=== PATIENT | female | born 1940 | race Caucasian/White ===

== ENCOUNTER 2018-02-02 14:07 | Observation (INO) | payer MEDICARE, BC ==
[2018-02-02] MEDS ORDERED: SODIUM CHLORIDE 0.9% 1,000 ML IV STA ×2 (14:22)
[2018-02-02] MEDS ORDERED: IBUPROFEN 600 MG TAB PO STA (14:22)
[2018-02-02] MEDS ORDERED: ACETAMINOPHEN TAB 500 MG TAB PO STA (14:22)
--- NOTE | 2018-02-02 14:23 | ED ---
General Adult HPI - General Chief complaint: Altered Mental Status Stated complaint: Altered Mental Status Time Seen by Provider: 02/02/18 14:13 Source: patient, family, RN notes reviewed, old records reviewed Mode of arrival: wheelchair Limitations: altered mental status - History of Present Illness Initial comments: This is a 77-year-old female the ER for evaluation. Patient presents today for evaluation regards to weakness altered mental status shortness of breath left- sided rib pain. Patient states he rib injury earlier in the week consistent has not been feeling well. Shortness breath cough today. No recent travel history no sick contacts. No specific trauma that she can remember, patient does admit to shortness of breath currently and positive fever - Related Data Home Medications Medication Instructions Recorded Confirmed Aspirin EC [Ecotrin Low Dose] 81 mg PO DAILY 02/02/18 02/02/18 Eye Vitamin(Unknown) 1 tab PO DAILY 02/02/18 02/02/18 Fexofenadine HCl [Janet Allergy] 180 mg PO DAILY 02/02/18 02/02/18 LORazepam [Ativan] 2 mg PO DAILY PRN 02/02/18 02/02/18 Lisinopril [Zestril] 10 mg PO DAILY 02/02/18 02/02/18 Lovastatin [Mevacor] 80 mg PO HS 02/02/18 02/02/18 Ubidecarenone [Co Q-10] 300 mg PO DAILY 02/02/18 02/02/18 Zolpidem [Ambien] 10 mg PO HS PRN 02/02/18 02/02/18 Allergies Allergy/AdvReac Type Severity Reaction Status Date / Time No Known Allergies Allergy Verified 02/02/18 14:35 Review of Systems ROS Statement: Those systems with pertinent positive or pertinent negative responses have been documented in the HPI. ROS Other: All systems not noted in ROS Statement are negative. Past Medical History Past Medical History: Hyperlipidemia, Hypertension Additional Past Medical History / Comment(s): uti Past Surgical History: Appendectomy Past Psychological History: No Psychological Hx Reported Smoking Status: Former smoker Past Alcohol Use History: Rare Past Drug Use History: None Reported - Past Family History Mother Family Medical History: No Reported History Additional Family Medical History / Comment(s): from old age in her 90's Father Family Medical History: Myocardial Infarction ([place]) General Exam Limitations: altered mental status General appearance: alert, in no apparent distress Head exam: Present: atraumatic, normocephalic, normal inspection Eye exam: Present: normal appearance, PERRL, EOMI. Absent: scleral icterus, conjunctival injection, periorbital swelling ENT exam: Present: normal exam, mucous membranes moist Neck exam: Present: normal inspection. Absent: tenderness, meningismus, lymphadenopathy Respiratory exam: Present: normal lung sounds bilaterally, accessory muscle use , decreased breath sounds, prolonged expiratory. Absent: respiratory distress, wheezes, rales, rhonchi, stridor Cardiovascular Exam: Present: normal rhythm, tachycardia, normal heart sounds. Absent: systolic murmur, diastolic murmur, rubs, gallop, clicks GI/Abdominal exam: Present: soft, normal bowel sounds. Absent: distended, tenderness, guarding, rebound, rigid Extremities exam: Present: normal inspection, full ROM, normal capillary refill. Absent: tenderness, pedal edema, joint swelling, calf tenderness Back exam: Present: normal inspection Neurological exam: Present: alert, oriented X3, CN II-XII intact Psychiatric exam: Present: normal affect, normal mood Skin exam: Present: warm, dry, intact, normal color. Absent: rash Course Vital Signs 02/02/18 02/02/18 02/02/18 14:10 15:47 16:20 Temperature 100.3 F H 101.2 F H 99.1 F Pulse Rate 113 H 99 94 Pulse Rate [ Pulse Oximetery ] Respiratory 18 18 18 Rate Blood Pressure 131/71 130/66 106/59 Blood Pressure [Right Arm] O2 Sat by Pulse 93 L 94 L 96 Oximetry 02/02/18 17:41 Temperature 99.2 F Pulse Rate Pulse Rate [ 92 Pulse Oximetery ] Respiratory 18 Rate Blood Pressure Blood Pressure 123/73 [Right Arm] O2 Sat by Pulse 95 Oximetry EKG Findings - EKG Comments: EKG Findings:: EKG shows sinus tachycardia rate 106, LA 160, QRS 86, [id number] Medical Decision Making - Medical Decision Making 77 female the ER positive fever, positive shortness of breath with cough. Patient has positive fever, will admit for pneumonia IV antibiotics and fever control - Lab Data Result diagrams: 02/03/18 08:15 02/04/18 07:40 Lab Results 02/02/18 02/02/18 02/02/18 Range/Units 14:25 14:25 14:25 WBC 8.1 (3.8-10.6) k/uL RBC 4.26 (3.80-5.40) m/uL Hgb 12.3 (11.4-16.0) gm/dL Hct 36.3 (34.0-46.0) % MCV 85.1 (80.0-100.0) fL MCH 28.9 (25.0-35.0) pg MCHC 34.0 (31.0-37.0) g/dL RDW 13.7 (11.5-15.5) % Plt Count 161 (150-450) k/uL Neutrophils % 85 % Lymphocytes % 5 % Monocytes % 6 % Eosinophils % 0 % Basophils % 0 % Neutrophils # 6.9 (1.3-7.7) k/uL Lymphocytes # 0.4 L (1.0-4.8) k/uL Monocytes # 0.5 (0-1.0) k/uL Eosinophils # 0.0 (0-0.7) k/uL Basophils # 0.0 (0-0.2) k/uL PT (9.0-12.0) sec INR (<1.2) APTT (22.0-30.0) sec Sodium 135 L (137-145) mmol/L Potassium 4.7 (3.5-5.1) mmol/L Chloride 99 (98-107) mmol/L Carbon Dioxide 22 (22-30) mmol/L Anion Gap 14 mmol/L BUN 32 H (7-17) mg/dL Creatinine 1.27 H (0.52-1.04) mg/dL Est GFR (CKD-EPI)AfAm 48 (>60 ml/min/1.73 sqM) Est GFR (CKD-EPI)NonAf 41 (>60 ml/min/1.73 sqM) Glucose 116 H (74-99) mg/dL Plasma Lactic Acid Narinder (0.7-2.0) mmol/L Calcium 9.2 (8.4-10.2) mg/dL Phosphorus 3.2 (2.5-4.5) mg/dL Magnesium 2.3 (1.6-2.3) mg/dL Total Bilirubin 0.6 (0.2-1.3) mg/dL AST 43 H (14-36) U/L ALT 38 (9-52) U/L Alkaline Phosphatase 225 H (38-126) U/L Total Creatine Kinase 26 L (30-135) U/L CK-MB (CK-2) 0.4 (0.0-2.4) ng/mL CK-MB (CK-2) Rel Index 1.5 Troponin I <0.012 (0.000-0.034) ng/mL Total Protein 7.0 (6.3-8.2) g/dL Albumin 3.7 (3.5-5.0) g/dL TSH 2.660 (0.465-4.680) mIU/L Urine Color Urine Appearance (Clear) Urine pH (5.0-8.0) Ur Specific [place] (1.001-1.035) Urine Protein (Negative) Urine Glucose (UA) (Negative) Urine Ketones (Negative) Urine Blood (Negative) Urine Nitrite (Negative) Urine Bilirubin (Negative) Urine Urobilinogen (<2.0) mg/dL Ur Leukocyte Esterase (Negative) Urine RBC (0-5) /hpf Urine WBC (0-5) /hpf Urine Bacteria (None) /hpf Hyaline Casts (0-2) /lpf Urine Mucus (None) /hpf Influenza Type A RNA (Not Detectd) Influenza Type B (PCR) (Not Detectd) 02/02/18 02/02/18 02/02/18 Range/Units 14:25 14:25 14:25 WBC (3.8-10.6) k/uL RBC (3.80-5.40) m/uL Hgb (11.4-16.0) gm/dL Hct (34.0-46.0) % MCV (80.0-100.0) fL MCH (25.0-35.0) pg MCHC (31.0-37.0) g/dL RDW (11.5-15.5) % Plt Count (150-450) k/uL Neutrophils % % Lymphocytes % % Monocytes % % Eosinophils % % Basophils % % Neutrophils # (1.3-7.7) k/uL Lymphocytes # (1.0-4.8) k/uL Monocytes # (0-1.0) k/uL Eosinophils # (0-0.7) k/uL Basophils # (0-0.2) k/uL PT 9.8 (9.0-12.0) sec INR 1.0 (<1.2) APTT 26.1 (22.0-30.0) sec Sodium (137-145) mmol/L Potassium (3.5-5.1) mmol/L Chloride (98-107) mmol/L Carbon Dioxide (22-30) mmol/L Anion Gap mmol/L BUN (7-17) mg/dL Creatinine (0.52-1.04) mg/dL Est GFR (CKD-EPI)AfAm (>60 ml/min/1.73 sqM) Est GFR (CKD-EPI)NonAf (>60 ml/min/1.73 sqM) Glucose (74-99) mg/dL Plasma Lactic Acid Narinder 0.8 (0.7-2.0) mmol/L Calcium (8.4-10.2) mg/dL Phosphorus (2.5-4.5) mg/dL Magnesium (1.6-2.3) mg/dL Total Bilirubin (0.2-1.3) mg/dL AST (14-36) U/L ALT (9-52) U/L Alkaline Phosphatase (38-126) U/L Total Creatine Kinase (30-135) U/L CK-MB (CK-2) (0.0-2.4) ng/mL CK-MB (CK-2) Rel Index Troponin I (0.000-0.034) ng/mL Total Protein (6.3-8.2) g/dL Albumin (3.5-5.0) g/dL TSH (0.465-4.680) mIU/L Urine Color Urine Appearance (Clear) Urine pH (5.0-8.0) Ur Specific [place] (1.001-1.035) Urine Protein (Negative) Urine Glucose (UA) (Negative) Urine Ketones (Negative) Urine Blood (Negative) Urine Nitrite (Negative) Urine Bilirubin (Negative) Urine Urobilinogen (<2.0) mg/dL Ur Leukocyte Esterase (Negative) Urine RBC (0-5) /hpf Urine WBC (0-5) /hpf Urine Bacteria (None) /hpf Hyaline Casts (0-2) /lpf Urine Mucus (None) /hpf Influenza Type A RNA Not Detected (Not Detectd) Influenza Type B (PCR) Not Detected (Not Detectd) 02/02/18 Range/Units 15:45 WBC (3.8-10.6) k/uL RBC (3.80-5.40) m/uL Hgb (11.4-16.0) gm/dL Hct (34.0-46.0) % MCV (80.0-100.0) fL MCH (25.0-35.0) pg MCHC (31.0-37.0) g/dL RDW (11.5-15.5) % Plt Count (150-450) k/uL Neutrophils % % Lymphocytes % % Monocytes % % Eosinophils % % Basophils % % Neutrophils # (1.3-7.7) k/uL Lymphocytes # (1.0-4.8) k/uL Monocytes # (0-1.0) k/uL Eosinophils # (0-0.7) k/uL Basophils # (0-0.2) k/uL PT (9.0-12.0) sec INR (<1.2) APTT (22.0-30.0) sec Sodium (137-145) mmol/L Potassium (3.5-5.1) mmol/L Chloride (98-107) mmol/L Carbon Dioxide (22-30) mmol/L Anion Gap mmol/L BUN (7-17) mg/dL Creatinine (0.52-1.04) mg/dL Est GFR (CKD-EPI)AfAm (>60 ml/min/1.73 sqM) Est GFR (CKD-EPI)NonAf (>60 ml/min/1.73 sqM) Glucose (74-99) mg/dL Plasma Lactic Acid Narinder (0.7-2.0) mmol/L Calcium (8.4-10.2) mg/dL Phosphorus (2.5-4.5) mg/dL Magnesium (1.6-2.3) mg/dL Total Bilirubin (0.2-1.3) mg/dL AST (14-36) U/L ALT (9-52) U/L Alkaline Phosphatase (38-126) U/L Total Creatine Kinase (30-135) U/L CK-MB (CK-2) (0.0-2.4) ng/mL CK-MB (CK-2) Rel Index Troponin I (0.000-0.034) ng/mL Total Protein (6.3-8.2) g/dL Albumin (3.5-5.0) g/dL TSH (0.465-4.680) mIU/L Urine Color Yellow Urine Appearance Cloudy H (Clear) Urine pH 6.0 (5.0-8.0) Ur Specific [place] 1.018 (1.001-1.035) Urine Protein 3+ H (Negative) Urine Glucose (UA) Negative (Negative) Urine Ketones 2+ H (Negative) Urine Blood Moderate H (Negative) Urine Nitrite Positive H (Negative) Urine Bilirubin Negative (Negative) Urine Urobilinogen <2.0 (<2.0) mg/dL Ur Leukocyte Esterase Moderate H (Negative) Urine RBC 34 H (0-5) /hpf Urine WBC 68 H (0-5) /hpf Urine Bacteria Many H (None) /hpf Hyaline Casts 28 H (0-2) /lpf Urine Mucus Few H (None) /hpf Influenza Type A RNA (Not Detectd) Influenza Type B (PCR) (Not Detectd) - Radiology Data Radiology results: report reviewed (Chest x-ray positive for pneumonia, GALLBLADDER NEGATIVE), image reviewed Disposition Clinical Impression: Altered mental status, Fever, COPD (chronic obstructive pulmonary disease), Acute bronchitis Disposition: ADMITTED IP TO THIS HOSP Condition: Good Is patient prescribed a controlled substance at d/c from ED?: No
[2018-02-02 14:53] LABS: Basophils % (A) 0 %; Eosinophils % (A) 0 %; HCT 36.3 % (34.0-46.0); HGB 12.3 gm/dL (11.4-16.0); Lymphocytes # (A) 0.4 k/uL (1.0-4.8); Lymphocytes % (A) 5 %; MCH 28.9 pg (25.0-35.0); MCV 85.1 fL (80.0-100.0); Mean Platelet Volume 7.8; Monocytes # (A) 0.5 k/uL (0-1.0); Monocytes % (A) 6 %; Neutrophils # (A) 6.9 k/uL (1.3-7.7); Neutrophils % (A) 85 %; Platelet Count 161 k/uL (150-450); RBC 4.26 m/uL (3.80-5.40); RDW 13.7 % (11.5-15.5); WBC 8.1 k/uL (3.8-10.6)
[2018-02-02 15:01] LABS: Partial Thromboplastin Time 26.1 sec (22.0-30.0); Prothrombin Time 9.8 sec (9.0-12.0)
[2018-02-02 15:12] LABS: Creatine Kinase 26 U/L (30-135)
[2018-02-02 15:14] LABS: Albumin 3.7 g/dL (3.5-5.0); Calcium 9.2 mg/dL (8.4-10.2); Magnesium 2.3 mg/dL (1.6-2.3); Phosphorus 3.2 mg/dL (2.5-4.5); Potassium 4.7 mmol/L (3.5-5.1); Total Bilirubin 0.6 mg/dL (0.2-1.3)
--- NOTE | 2018-02-02 15:15 | XR ---
EXAMINATION TYPE: XR chest 2V DATE OF EXAM: 02/02/2018 COMPARISON: NONE HISTORY: Shortness of breath per patient. Weakness per order. TECHNIQUE: Frontal and lateral views of the chest are obtained. FINDINGS: There is chronic parenchymal change with linear opacity lateral aspect both lung bases fav oring atelectasis and/or scarring. No pleural effusion or pneumothorax is seen bilaterally. The cardi ac silhouette size is within normal limits with atherosclerotic aorta. Degenerative change bilateral glenohumeral joints is seen. IMPRESSION: Chronic changes without suspicious acute pulmonary process.
[2018-02-02 15:25] LABS: Creatine Kinase MB 0.4 ng/mL (0.0-2.4); Troponin I <0.012 ng/mL (0.000-0.034)
[2018-02-02] MEDS ORDERED: methylPREDNISolone SOD SUCCI 125 MG/2 ML VIAL IV STA (15:33)
[2018-02-02 16:04] LABS: Appearance,Urine Cloudy (Clear); Bacteria,Urine Many /hpf; Bilirubin,Urine Negative (Negative); Blood,Urine Moderate (Negative); Color,Urine Yellow; Glucose,Urine (UA) Negative (Negative); Hyaline Casts,Urine 28 /lpf (0-2); Ketones,Urine 2+ (Negative); Leukocyte Esterase,Urine Moderate (Negative); Mucus,Urine Few /hpf; Nitrite,Urine Positive (Negative); Protein,Urine 3+ (Negative); RBC,Urine 34 /hpf (0-5); Specific Gravity,Urine 1.018 (1.001-1.035); Urobilinogen,Urine <2.0 mg/dL (<2.0); WBC,Urine 68 /hpf (0-5)
--- NOTE | 2018-02-02 16:56 | US ---
EXAMINATION TYPE: US gallbladder DATE OF EXAM: 02/02/2018 COMPARISON: NONE CLINICAL HISTORY: Pain. EXAM MEASUREMENTS: Liver Length: 20.2 cm Gallbladder Wall: 0.2 cm CBD: 0.3 cm Right Kidney: 12.9 x 5.7 x 6.3 cm Pancreas: Tail obscured by overlying bowel gas, visualized portions wnl Liver: Enlarged Gallbladder: wnl Evidence for sonographic Bhakta's sign: No CBD: wnl distal portion obscured by bowel gas Right Kidney: No hydronephrosis or masses seen IMPRESSION: No gallstones or dilated ducts. There is mild hepatomegaly.
[2018-02-02] MEDS: SODIUM CHLORIDE 0.9% 1,000 ML IV SCH (18:26)
[2018-02-02] MEDS: LEVOFLOXACIN 500MG-D5W PMX 500 MG in DEXTROSE/WATER 1 100ML.BAG IVPB SCH (18:26)
[2018-02-02] MEDS: HEPARIN SODIUM,PORCINE 5,000 UNIT/ML 1 ML VIAL SQ SCH (22:09)
[2018-02-02] MEDS: ATORVASTATIN 20 MG TAB PO SCH (22:09)
[2018-02-02] MEDS: ZOLPIDEM 10 MG TAB PO PRN (22:35)
[2018-02-02] MEDS ORDERED: methylPREDNISolone SOD SUCCI 125 MG/2 ML VIAL IV SCH (23:00)
[2018-02-03] MEDS: SODIUM CHLORIDE 0.9% 1,000 ML IV SCH ×2 (04:57→08:32)
--- NOTE | 2018-02-03 07:53 | P.HPIM ---
History of Present Illness Chief complaint Per daughter there is a change in mental status History of present illness The patient is a 77-year-old female patient of mine seen for many years in the office. Apparently the daughter brought her into the emergency room because she has been more confused on and off for the past several days. Apparently she has had some mild cough and increased temperatures at home but not that marked according to the daughter. At times of the past several days since patient has been somewhat disoriented. The patient has been texting things that did not make any sense to daughter. Yesterday the patient did not remember that it was her daughter's birthday which was very unusual for her. The patient did have a headache earlier in the week which was not very severe. She did state she had some fever or chills and general body aches. She did develop some lower right anterior rib pain after exercising about 4-5 days ago. No definite pleurisy. Slight cough but no marked phlegm production. Patient denies any definite urinary or bowel symptoms. No skin rashes or unusual joint aches at this time. No definite chest pain or angina. Apparently patient has had no urinary tract infections in the past. Past medical history Positive for hypertension Gen. anxiety disorder Hyperlipidemia Insomnia No history of myocardial infarction, diabetes or stroke. Surgeries: Appendectomy age 13. Medications Zolpidem 10 mg at at bedtime when necessary for sleep Coenzyme Q10 300 mg daily Lovastatin 80 mg at at bedtime Lisinopril 10 mg daily Ativan 2 mg daily as needed for anxiety Janet 180 mg daily Eye vitamin daily Aspirin 81 mg daily. No known ALLERGIES Review of systems Basically as mentioned in the history of present illness. No history of any recent falls or trauma. Family history Positive for coronary artery disease Mother with diabetes in the past Daughter with asthma. Social history Patient is a former smoker. Occasional alcohol usage only. Patient lives on her own rather independently. Does have contact with her daughter regularly. Patient is sitting up in the stretcher in the emergency room. In no acute distress. Maximum temperature was 101.2 but presently down to 99. Pulse was elevated up to 113 but down to 94. Respiratory rate of 18 with a blood pressure 106/59 and she is 96% saturated on 2 L nasal cannula. Head is atraumatic. Extraocular movements are intact. Skin does not show any signs of rashes No joint effusions or warmth noted. Neck is supple. Pupils equal and reactive. No carotid bruits or thyromegaly or adenopathy. Breasts and pelvic deferred at this time. Lungs were generally clear to auscultation and percussion. Heart tones were regular without definitive murmur. Abdomen soft and nontender without rebound guarding or masses detected. Bowel sounds present. Extremities reveal no edema. Neurologically she is alert. She did not know that this was Monday and thought it was . She thought it was winter out and then said spring. Thought that the month was October. Chest x-ray showed chronic changes but no acute pulmonary process. Laboratory White count 8.1 with a hemoglobin 12.3 and a platelet count of 161. INR 1.0 with PTT of 26.1 Sodium is 135 potassium 4.7. BUN is 32 with a creatinine of 1.27 and her GFR 41. Blood sugar was 116. Venous lactic acid level 0.8 Calcium was 9.2. Magnesium 2.3. AST slightly elevated at 43 with an alk phos of 225 with bilirubin was normal at 0.6. CK is 26 with a troponin less than 0.012. Albumin 3.7 and TSH 2.6. Urinalysis though revealed moderate leukocytes with 60 white cells and 34 RBCs. Influenza A and B not detected. EKG shows a sinus tachycardia without definitive ischemic changes. Gallbladder ultrasound to not show stones or dilated ducts. Mild hepatomegaly noted. Impression 1. Sepsis with likely urinary source and systemic inflammatory response syndrome with confusion and mildly elevated liver function tests. 2. Other past history as listed in the past medical history above. Plans Patient will be hydrated. Cultures from urine and blood to be obtained. Antibiotics to be initiated for general coverage pending cultures. Labs ordered for the morning. Discussed reasons for admission and treatment with daughter and patient. Further recommendations pending results and clinical response. Past Medical History Past Medical History: Hyperlipidemia, Hypertension Additional Past Medical History / Comment(s): uti Past Surgical History: Appendectomy Past Psychological History: No Psychological Hx Reported Smoking Status: Former smoker Past Alcohol Use History: Rare Past Drug Use History: None Reported Medications and Allergies Home Medications Medication Instructions Recorded Confirmed Type Aspirin EC [Ecotrin Low Dose] 81 mg PO DAILY 02/02/18 02/02/18 History Eye Vitamin(Unknown) 1 tab PO DAILY 02/02/18 02/02/18 History Fexofenadine HCl [Janet Allergy] 180 mg PO DAILY 02/02/18 02/02/18 History LORazepam [Ativan] 2 mg PO DAILY PRN 02/02/18 02/02/18 History Lisinopril [Zestril] 10 mg PO DAILY 02/02/18 02/02/18 History Lovastatin [Mevacor] 80 mg PO HS 02/02/18 02/02/18 History Ubidecarenone [Co Q-10] 300 mg PO DAILY 02/02/18 02/02/18 History Zolpidem [Ambien] 10 mg PO HS PRN 02/02/18 02/02/18 History Allergies Allergy/AdvReac Type Severity Reaction Status Date / Time No Known Allergies Allergy Verified 02/02/18 14:35 Physical Exam Vitals: Vital Signs Temp Pulse Resp BP Pulse Ox 02/02/18 16:20 99.1 F 94 18 106/59 96 02/02/18 15:47 101.2 F H 99 18 130/66 94 L 02/02/18 14:10 100.3 F H 113 H 18 131/71 93 L Intake and Output 02/02/18 02/02/18 02/02/18 06:59 14:59 22:59 Other: Weight 77.111 kg Results CBC & Chem 7: 02/02/18 14:25 02/02/18 14:25 Labs: Abnormal Lab Results - Last 24 Hours (Table) 02/02/18 02/02/18 02/02/18 Range/Units 14:25 14:25 14:25 Lymphocytes # 0.4 L (1.0-4.8) k/uL Sodium 135 L (137-145) mmol/L BUN 32 H (7-17) mg/dL Creatinine 1.27 H (0.52-1.04) mg/dL Glucose 116 H (74-99) mg/dL AST 43 H (14-36) U/L Alkaline Phosphatase 225 H (38-126) U/L Total Creatine Kinase 26 L (30-135) U/L Urine Appearance (Clear) Urine Protein (Negative) Urine Ketones (Negative) Urine Blood (Negative) Urine Nitrite (Negative) Ur Leukocyte Esterase (Negative) Urine RBC (0-5) /hpf Urine WBC (0-5) /hpf Urine Bacteria (None) /hpf Hyaline Casts (0-2) /lpf Urine Mucus (None) /hpf 02/02/ Range/Units 15:45 Lymphocytes # (1.0-4.8) k/uL Sodium (137-145) mmol/L BUN (7-17) mg/dL Creatinine (0.52-1.04) mg/dL Glucose (74-99) mg/dL AST (14-36) U/L Alkaline Phosphatase (38-126) U/L Total Creatine Kinase (30-135) U/L Urine Appearance Cloudy H (Clear) Urine Protein 3+ H (Negative) Urine Ketones 2+ H (Negative) Urine Blood Moderate H (Negative) Urine Nitrite Positive H (Negative) Ur Leukocyte Esterase Moderate H (Negative) Urine RBC 34 H (0-5) /hpf Urine WBC 68 H (0-5) /hpf Urine Bacteria Many H (None) /hpf Hyaline Casts 28 H (0-2) /lpf Urine Mucus Few H (None) /hpf
[2018-02-03] MEDS: HEPARIN SODIUM,PORCINE 5,000 UNIT/ML 1 ML VIAL SQ SCH ×2 (08:28→20:40)
[2018-02-03] MEDS: LISINOPRIL 10 MG TAB PO SCH (08:28)
[2018-02-03] MEDS: cefTRIAXone IN SWFI 1,000 MG/10 ML SYRINGE IVP SCH (08:28)
[2018-02-03 08:55] LABS: Basophils % (A) 0 %; Eosinophils % (A) 0 %; HCT 36.5 % (34.0-46.0); HGB 11.5 gm/dL (11.4-16.0); Lymphocytes # (A) 0.5 k/uL (1.0-4.8); Lymphocytes % (A) 6 %; MCH 27.2 pg (25.0-35.0); MCHC 31.4 g/dL (31.0-37.0); MCV 86.6 fL (80.0-100.0); Mean Platelet Volume 7.8; Monocytes # (A) 0.2 k/uL (0-1.0); Monocytes % (A) 3 %; Neutrophils # (A) 7.4 k/uL (1.3-7.7); Neutrophils % (A) 90 %; Platelet Count 175 k/uL (150-450); RBC 4.22 m/uL (3.80-5.40); RDW 13.6 % (11.5-15.5); WBC 8.3 k/uL (3.8-10.6)
[2018-02-03] MEDS ORDERED: ENOXAPARIN 40 MG/0.4 ML SYRINGE SQ SCH (09:00)
[2018-02-03 09:17] LABS: Calcium 8.5 mg/dL (8.4-10.2); Potassium 4.7 mmol/L (3.5-5.1); Total Bilirubin 0.4 mg/dL (0.2-1.3); Total Protein 5.6 g/dL (6.3-8.2)
--- NOTE | 2018-02-03 10:05 | P.PN ---
Progress Note - Text The patient is a 77-year-old female who presented yesterday to the emergency room after being brought by her daughter with the confusion over the past several days. The patient did have fever and chills at home. Further testing did reveal marked pyuria consistent with a urinary tract infection. The patient has been on antibiotics with Levaquin and Rocephin. IV fluid resuscitation. She states she feels better this morning. She does not feel as confused that she was. Denies any chest pain or shortness of breath. No abdominal discomfort. Patient ate well this morning. Temperature is 90.7 with a pulse of 75 and respirations 16. Blood pressure 121/ 82 and she is 94% saturated on room air. Lung and heart examination is clear and regular. Abdomen is nontender. No unusual edema. She is alert. No cranial nerve defects. No focal defects. She seems oriented well this morning. Laboratory CBC basically unremarkable with a white count of 8.3 and a hemoglobin 11.5 and a platelet count of 175. Electrolytes also are good with a sodium 141 and potassium 4.7. BUN is still elevated at 29 with a normal creatinine of 0.96 given her a GFR of 58. Blood sugar this morning is 203. Alkaline phosphatase is improved at 176 but albumin is low at 3.0. Urine culture in progress. Impression and plans At this time we will continue present antibiotics. We'll await results of culture. Continue with hydration. We'll check A1c. Recheck labs in the morning. Dr. Cortez communication engineer for me over weekend if any concerns.
[2018-02-03] MEDS: LORazepam 1 MG TAB PO PRN (12:45)
[2018-02-03] MEDS: LEVOFLOXACIN 500MG-D5W PMX 500 MG in DEXTROSE/WATER 1 100ML.BAG IVPB SCH (17:08)
[2018-02-03] MEDS: ACETAMINOPHEN TAB 325 MG TAB PO PRN (18:33)
[2018-02-03] MEDS: ATORVASTATIN 20 MG TAB PO SCH (20:40)
[2018-02-03] MEDS: ZOLPIDEM 10 MG TAB PO PRN (22:18)
[2018-02-04] MEDS: LORazepam 1 MG TAB PO PRN ×2 (05:20→14:57)
[2018-02-04] MEDS: ACETAMINOPHEN TAB 325 MG TAB PO PRN (05:22)
[2018-02-04] MEDS: SODIUM CHLORIDE 0.9% 1,000 ML IV SCH ×3 (05:23→09:56)
[2018-02-04] MEDS: HEPARIN SODIUM,PORCINE 5,000 UNIT/ML 1 ML VIAL SQ SCH ×2 (07:54→20:15)
[2018-02-04] MEDS: LISINOPRIL 10 MG TAB PO SCH (07:54)
[2018-02-04] MEDS: cefTRIAXone IN SWFI 1,000 MG/10 ML SYRINGE IVP SCH (07:54)
[2018-02-04 09:04] LABS: Calcium 8.3 mg/dL (8.4-10.2); Potassium 4.2 mmol/L (3.5-5.1)
--- NOTE | 2018-02-04 09:37 | P.PN ---
Progress Note - Text The patient is a 77-year-old female presented 2 days ago to emergency room with confusion. The patient was found to have a urinary tract infection and is growing gram-negative rods although final identification is pending. A blood culture was negative. This morning she generally feels better. She is having some right-sided rib discomfort. Worse when she is stretching or moving. Vital signs reveal a temperature 97.5 a pulse of 89 and respirations 16. Blood pressure is 154/82 and she is 96% saturated on room air. Lung and heart examination is clear and regular. Abdomen is soft and nontender. No unusual edema. No neurological changes. Laboratory BUN is 22 with creatinine of 0.81 giving her GFR 71. Blood sugars 105. Calcium 8.3. Impressions and plans Overall this 77-year-old female will continue on IV antibiotics for now. She is to continue with increasing her activity. Hopefully can be discharge over the next 24-48 hours pending results of her urine cultures. And hopefully continued good clinical response. We'll add tramadol for her right-sided musculoskeletal pain. Ultrasound was negative. IV decreased to [address] Cortez traditional maori health practitioner today if any medical concerns should arise.
[2018-02-04] MEDS: traMADol 50 MG TAB PO PRN ×3 (09:58→23:20)
[2018-02-04 18:11] LABS: Hemoglobin A1C 5.8 % (4.0-6.0)
[2018-02-04] MEDS: LEVOFLOXACIN 500MG-D5W PMX 500 MG in DEXTROSE/WATER 1 100ML.BAG IVPB SCH (18:33)
[2018-02-04] MEDS: ATORVASTATIN 20 MG TAB PO SCH (20:15)
[2018-02-04] MEDS: ZOLPIDEM 10 MG TAB PO PRN (23:20)
[2018-02-05] MEDS: LORazepam 1 MG TAB PO PRN (02:54)
[2018-02-05] MEDS: SODIUM CHLORIDE 0.9% 1,000 ML IV SCH (05:58)
[2018-02-05] MEDS: traMADol 50 MG TAB PO PRN ×2 (07:33→12:36)
[2018-02-05] MEDS: cefTRIAXone IN SWFI 1,000 MG/10 ML SYRINGE IVP SCH (07:33)
[2018-02-05] MEDS: HEPARIN SODIUM,PORCINE 5,000 UNIT/ML 1 ML VIAL SQ SCH (07:34)
[2018-02-05] MEDS: LISINOPRIL 10 MG TAB PO SCH (07:34)
[2018-02-05 07:43] VITALS: BP 142/83; PULSE 75; RESP 16; TEMP 96.9
--- NOTE | 2018-02-05 08:28 | P.DS ---
Providers Date of admission: 02/02/18 15:56 Attending physician: Kalin Rivera Primary care physician: Kalin Rivera The patient is a 77-year-old female who presented to the emergency room with mental status changes. Patient has been found to have a gram-negative E. coli urinary tract infection with sepsis. Inflammatory response syndrome. That was causing her confusion. Patient has been treated with IV antibiotics along with fluids intravenously and has improved. This morning she is alert and oriented. Vital signs reveal temperature 96.9 with a pulse of 75 and respirations 16. Blood pressure 142/83 and she is 95% saturated on room air. Lung and heart examination is clear and regular. Abdomen is soft and nontender. No unusual distal edema. No neurological deficits. Laboratory values CBCs have been unremarkable with white count around 8 and hemoglobin 11-12. Platelet count normal at 175. Sodium 142 with potassium 4.2. BUN of 22 with creatinine of 0.81 giving her a GFR of 71. Blood sugar yesterday was 105. Microbiology Blood cultures have been negative after 48 hours. Urine culture positive for E. coli with good sensitivities to all antibiotics tested. Chest x-ray showed no acute changes. EKG showed a sinus tachycardia without ST, t wave changes. Discharge medications Patient will resume her home medications. These will include her Ambien 10 mg at at bedtime as needed for sleep Mevacor 80 mg at at bedtime for hyperlipidemia Zestril 10 mg daily for hypertension. Lorazepam 2 mg daily as needed for generalized anxiety Janet 180 mg if needed for ALLERGIES. She also takes aspirin 81 mg daily Ophthalmologic vitamins 1 daily. Acetaminophen recommended for pain if needed. Patient also will be sent in ciprofloxacin 250 mg twice a day for 7 more days. This prescription will be sent through my EMR to her [facility] pharmacy in [place] as per her request. Office follow-up in 7 days. She is to call if any questions or concerns or problems. Did recommend that she increase her fluids. Diet and activities as tolerated. Apparently her daughter will be staying with her for several days to be sure she is doing well. Patient Condition at Discharge: Good Plan - Discharge Summary Discharge Rx Participant: Yes New Discharge Prescriptions: No Action Ubidecarenone [Co Q-10] 300 mg PO DAILY Fexofenadine HCl [Janet Allergy] 180 mg PO DAILY Aspirin EC [Ecotrin Low Dose] 81 mg PO DAILY Zolpidem [Ambien] 10 mg PO HS PRN PRN Reason: Insomnia Lovastatin [Mevacor] 80 mg PO HS Lisinopril [Zestril] 10 mg PO DAILY LORazepam [Ativan] 2 mg PO DAILY PRN PRN Reason: Anxiety Eye Vitamin(Unknown) 1 tab PO DAILY Discharge Medication List Aspirin EC [Ecotrin Low Dose] 81 mg PO DAILY 02/02/18 [History] Eye Vitamin(Unknown) 1 tab PO DAILY 02/02/18 [History] Fexofenadine HCl [Janet Allergy] 180 mg PO DAILY 02/02/18 [History] LORazepam [Ativan] 2 mg PO DAILY PRN 02/02/18 [History] Lisinopril [Zestril] 10 mg PO DAILY 02/02/18 [History] Lovastatin [Mevacor] 80 mg PO HS 02/02/18 [History] Ubidecarenone [Co Q-10] 300 mg PO DAILY 02/02/18 [History] Zolpidem [Ambien] 10 mg PO HS PRN 02/02/18 [History] Follow up Appointment(s)/Referral(s): Kalin Rivera MD [Primary Care Provider] - 1-2 days Patient Instructions/Handouts: Urinary Tract Infection in Women (DC)
== END 2018-02-05 12:47 | disposition home or self-care (01) ==
LOC: EC 14:07 → 4MS4W 15:56
PROVIDERS: ADMIT Internal Medicine; ATTEND Internal Medicine
DX: A41.51 Sepsis due to Escherichia coli [E. coli] (principal); N39.0 Urinary tract infection, site not specified; J44.0 Chronic obstructive pulmonary disease with (acute) lower respiratory infection; J20.9 Acute bronchitis, unspecified; R79.89 Other specified abnormal findings of blood chemistry; I10 Essential (primary) hypertension; E78.5 Hyperlipidemia, unspecified; G47.00 Insomnia, unspecified; F41.1 Generalized anxiety disorder; Z87.891 Personal history of nicotine dependence; Z79.82 Long term (current) use of aspirin; Z79.899 Other long term (current) drug therapy; Z87.440 Personal history of urinary (tract) infections; Z82.49 Family history of ischemic heart disease and other diseases of the circulatory system; Z83.3 Family history of diabetes mellitus; Z82.5 Family history of asthma and other chronic lower respiratory diseases
CPT/HCPCS: 99285 ×2; 96375 ×3; 96361 ×8; 96376 ×2; 96365; 96366 ×3; 96372 ×4; 36415; 93005; 80053 ×2; 80048; 82550; 82553; 83605; 83735; 84100; 84443; 84484; 85025 ×2; 85610; 85730; 81001; 87040; 87086; 87077; 87186; 87502; 83036; 71046; 76705; G0378 ×4; J1644 ×4; J2930; J1956 ×3; J0696 ×3

== ENCOUNTER → 2021-07-28 | Outpatient (CLI) | payer MEDICARE ==
--- NOTE | 2021-07-29 11:19 | ECHOF ---
Referral Reason:R01.1 Undiagnosed cardiac murmurs MEASUREMENTS -------- HEIGHT: 167.6 cm WEIGHT: 65.3 kg BP: 160/76 IVSd: 1.2 cm (0.6 - 1.1) LVIDd: 3.5 cm (3.9 - 5.3) LVPWd: 1.1 cm (0.6 - 1.1) EDV(Teich): 51 ml IVSs: 1.5 cm LVIDs: 2.3 cm LVPWs: 1.6 cm %IVS Thck: 24 % ESV(Teich): 18 ml EF(Teich): 66 % %FS: 35 % SV(Teich): 34 ml LVOT Diam: 2.0 cm LA Diam: 3.5 cm (2.7 - 3.8) RVIDd: 2.8 cm (< 3.3) LALs A4C: 5.5 cm LAAs A4C: 14.4 cm LAESV A-L A4C: 32 ml LAESV MOD A4C: 30 ml LALs A2C: 5.5 cm LAAs A2C: 16.8 cm LAESV A-L A2C: 44 ml LAESV MOD A2C: 41 ml LAESV(A-L): 38 ml LAESV Index (A-L): 21.56 ml/m Ao Diam: 3.2 cm (2.0 - 3.7) AV Cusp: 1.4 cm (1.5 - 2.6) EPSS: 0.7 cm MV E Fran: 0.61 m/s MV DecT: 268 ms MV Dec Leon: 2.3 m/s MV A Fran: 1.11 m/s MV E/A Ratio: 0.55 MV PHT: 78 ms LVOT Vmax: 1.47 m/s LVOT maxP.62 mmHg LVOT Vmax: 1.49 m/s LVOT Vmean: 0.98 m/s LVOT maxP.91 mmHg LVOT meanP.43 mmHg LVOT Env.Ti: 318 ms LVOT VTI: 31.3 cm AV Vmax: 1.47 m/s AV maxP.67 mmHg JOE Vmax, Pt: 3.1 cm JOE Vmax: 3.2 cm AV Vmax: 1.52 m/s AV Vmean: 0.96 m/s AV maxP.18 mmHg AV meanP.22 mmHg AV Env.Ti: 337 ms AV VTI: 32.3 cm JOE Vmax: 3.1 cm JOE (VTI): 3.0 cm JOE Vmax, Pt: 3.0 cm AR Vmax: 3.75 m/s AR maxP.28 mmHg AR PHT: 543 ms AR Dec Time: 1872 ms AR Dec Leon: 2.0 m/s TR Vmax: 2.68 m/s TR maxP.83 mmHg RAP: 5.00 mmHg RVSP: 33.83 mmHg MV EF SLOPE: 23.43 mm/s (70 - 150) MV EXCURSION: 9.41 mm (> 18.000) FINDINGS -------- Sinus rhythm. This was a technically adequate study. The left ventricular size is normal. There is borderline concentric left ventricular hypertrophy. Overall left ventricular systolic function is normal with, an EF between 60 - 65 %. The right ventricle is normal in size. Normal LA size by volume 22+/-6 ml/m2. The right atrium is normal in size. Aneurysmal Interatrial septum. There is mild to moderate aortic valve sclerosis. There is [id number] aortic regurgitation. Mild mitral annular calcification present. There is trace to mild mitral regurgitation. Mild tricuspid regurgitation present. There is borderline pulmonary hypertension. The right ventr icular systolic pressure, as measured by Doppler, is 33.83mmHg. Trace/mild (physiologic) pulmonic regurgitation. The aortic root size is normal. Normal inferior vena cava with normal inspiratory collapse consistent with estimated right atrial pre ssure of 5 mmHg. There is no pericardial effusion. CONCLUSIONS -------- 1. The left ventricular size is normal. 2. There is borderline concentric left ventricular hypertrophy. 3. Overall left ventricular systolic function is normal with, an EF between 60 - 65 %. 4. Aneurysmal Interatrial septum. 5. There is mild to moderate aortic valve sclerosis. 6. There is [id number] aortic regurgitation. 7. Mild mitral annular calcification present. 8. There is trace to mild mitral regurgitation. 9. Mild tricuspid regurgitation present. 10. There is borderline pulmonary hypertension. 11. The right ventricular systolic pressure, as measured by Doppler, is 33.83mmHg. 12. Trace/mild (physiologic) pulmonic regurgitation. 13. The aortic root size is normal. 14. Normal inferior vena cava with normal inspiratory collapse consistent with estimated right atrial pressure of 5 mmHg. 15. There is no pericardial effusion. [employer] COACH: Delia Ramirez RDCS
== END | disposition home or self-care (01) ==
LOC: RADECHMAIN 16:31
PROVIDERS: ATTEND Family Medicine
DX: I35.1 Nonrheumatic aortic (valve) insufficiency (principal); I25.3 Aneurysm of heart
CPT/HCPCS: 93306

== ENCOUNTER → 2024-12-30 | Outpatient (CLI) | payer MEDICARE ==
--- NOTE | 2024-12-30 11:09 | XR ---
EXAMINATION TYPE: XR Hip Complete LT DATE OF EXAM: 12/30/2024 CLINICAL INDICATION: Female, 84 years old with history of M16.12 UNILATERAL PRIMARY OSTEOARTHRITIS, L EFT HIP, Pain TECHNIQUE: AP and frogleg views of the left hip are obtained. COMPARISON: None. FINDINGS: There is advanced degenerative change in the left hip with marked joint space loss and ext ensive subchondral cystic change in the acetabulum and left femoral head. There is loss of spherical shape or volume to the left femoral head. No dislocation. Demineralization is present. Overlying soft tissue is unremarkable IMPRESSION: As above. [facility], , 12/30/2024 11:06 AM
== END | disposition home or self-care (01) ==
LOC: RADXRMAIN 10:34
PROVIDERS: ATTEND Family Medicine
DX: M16.12 Unilateral primary osteoarthritis, left hip (principal)
CPT/HCPCS: 73502

== ENCOUNTER → 2025-04-09 | Outpatient (CLI) | payer MEDICARE ==
[2025-04-09 15:02] LABS: Basophils # (A) 0.03 X 10*3/uL (0.00-0.10); Basophils % (A) 0.6 %; Eosinophils # (A) 0.28 X 10*3/uL (0.04-0.35); Eosinophils % (A) 5.2 %; HCT 39.0 % (37.2-46.3); HGB 11.9 g/dL (12.0-15.0); Immature Grans, Automated 0.20 %; Lymphocytes # (A) 1.20 X 10*3/uL (0.90-5.00); Lymphocytes % (A) 22.3 %; MCH 27.7 pg (27.0-32.0); MCHC 30.5 g/dL (32.0-37.0); MCV 90.9 FL (80.0-97.0); Monocytes # (A) 0.59 X 10*3/uL (0.20-1.00); Monocytes % (A) 11.0 %; NRBC Per 100 WBC 0 X 10*3/uL (0.00-0.01); Neutrophils # (A) 3.27 X 10*3/uL (1.80-7.70); Neutrophils % (A) 60.7 %; Platelet Count 249 X 10*3/uL (140-440); RBC 4.29 X 10*6/uL (4.10-5.20); RDW 13.6 % (11.5-14.5); WBC 5.38 X 10*3/uL (4.50-10.00)
[2025-04-09 15:27] LABS: INR 0.98 sec (0.93-1.11); Prothrombin Time 11.0 sec (9.9-11.9)
[2025-04-09 15:32] LABS: Anion Gap 10.60 mmol/L (4.00-12.00); BUN/Creat Ratio 24.71 Ratio (12.00-20.00); Blood Urea Nitrogen 17.3 mg/dL (9.0-27.0); Calcium 9.3 mg/dL (8.7-10.3); Carbon Dioxide 25.4 mmol/L (21.6-31.8); Chloride 105 mmol/L (96-109); Glucose 94 mg/dL (70-110); Potassium 4.1 mmol/L (3.5-5.5); Sodium 141 mmol/L (135-145)
== END | disposition home or self-care (01) ==
LOC: LABPAT 08:45
PROVIDERS: ATTEND Orthopaedic Surgery
DX: Z01.812 Encounter for preprocedural laboratory examination (principal); M16.12 Unilateral primary osteoarthritis, left hip; Z22.322 Carrier or suspected carrier of Methicillin resistant Staphylococcus aureus
CPT/HCPCS: 80048; 85025; 85610; 87070

== ENCOUNTER → 2025-04-14 | Outpatient (CLI) | payer MEDICARE | END | disposition home or self-care (01) | LOC: LABPAT 09:00 | PROVIDERS: ATTEND Orthopaedic Surgery | DX: Z01.812 Encounter for preprocedural laboratory examination (principal); M16.12 Unilateral primary osteoarthritis, left hip | CPT/HCPCS: 86850; 86900; 86901 ==

== ENCOUNTER 2025-04-21 05:46 | Day surgery (SDC) | payer MEDICARE ==
[2025-04-17 10:12] VITALS: BMI 25.0
[~2025-04-21 05:46] MED LIST: LIDOCAINE 1% (10MG/ML) FOR IV START INTRADERMA PRN; TRANEXAMIC 1,000 MG/100ML-NACL 1,000 MG in SALINE 1 100ML.BAG IVPB PRN
[2025-04-21] MEDS: IV FLUID CONTINUATION 1,000 ML IV ONE (06:34)
[2025-04-21] MEDS: LACTATED RINGERS 1,000 ML IV SCH (06:34)
[2025-04-21] MEDS: MELOXICAM 7.5 MG TAB PO PRN (06:46)
[2025-04-21] MEDS: ACETAMINOPHEN TAB 500 MG TAB PO PRN (06:46)
[2025-04-21] MEDS: ONDANSETRON 4 MG/2 ML VIAL IVP ONE (06:47)
[2025-04-21] MEDS: MIDAZOLAM 2 MG/2 ML VIAL IV ONE (07:10)
[2025-04-21] MEDS ORDERED: ROPIVACAINE 5 MG/ML 30 ML VIAL ONE (07:25)
[2025-04-21] MEDS ORDERED: DEXAMETHASONE SOD PHOSPHATE 4 MG/ML 1 ML VIAL ONE (07:25)
[2025-04-21] MEDS ORDERED: TRANEXAMIC 1,000 MG/100ML-NACL PREMIX BAG ONE (07:25)
[2025-04-21] MEDS ORDERED: ePHEDrine 50 MG/ML 1 ML VIAL ONE (07:25)
[2025-04-21] MEDS ORDERED: PROPOFOL 10 MG/ML 20 ML VIAL IV ONE (07:25)
[2025-04-21] MEDS ORDERED: NALOXONE 0.4 MG/ML 1 ML VIAL IV PRN (09:08)
[2025-04-21] MEDS ORDERED: HYDROmorphone 0.5 MG/0.5 ML SYRINGE IVP PRN ×2 (09:08)
[2025-04-21] MEDS ORDERED: HYDROcodone/APAP 5-325MG 1 EACH TAB PO PRN (09:08)
[2025-04-21] MEDS ORDERED: ONDANSETRON 4 MG/2 ML VIAL IVP PRN (09:08)
--- NOTE | 2025-04-21 09:08 | P.OP ---
Date of Procedure: 04/21/25 Preoperative Diagnosis: Left hip osteoarthritis Postoperative Diagnosis: Left hip osteoarthritis Procedure(s) Performed: Direct anterior left total hip arthroplasty Implants: 1. DePuy [place] 125 degree standard collared size 13 press-fit femoral stem 2. DePuy [place] 52 mm multihole press-fit acetabular shell 3. DePuy [place] neutral polyethylene acetabular liner 36 mm ID 52 mm OD 4. Biolox delta ceramic femoral head +1.5 36 mm Anesthesia: regional (Erector spinae block), spinal Surgeon: Nav [employer] Mother #1: Juan Diego Hussein Estimated Blood Loss (ml): 45 Pathology: none sent Condition: stable Disposition: PACU Indications for Procedure: 84-year-old patient seen with symptomatic left hip osteoarthritis. After having treatment options, she elected to proceed with direct anterior left total hip arthroplasty. Operative Findings: See description of procedure Description of Procedure: The patient was taken to the operative suite. Patient underwent a spinal anesthetic by the department of anesthesia. Patient was then transferred to the [place] table. Patient was given preoperative IV antibiotics and TXA. Both lower extremities were placed in standard leg spars. The hip was then prepped and draped in the normal sterile orthopedic fashion. A standard anterior incision was made beginning 3 cm lateral and 1 cm distal to the ASIS extending 10 cm. Dissection was then carried down through the subcutaneous soft tissues down to the fascia overlying the tensor fascia reba. An incision was now made through the fascia. Careful dissection was taken down exposing the tensor fascia reba muscle. A Cobra retractor was now placed along the medial femoral neck and a second one along the lateral femoral neck. The venous circumflex vessels were now identified, cauterized and clipped. We identified the anterior hip capsule. An incision was made through the hip capsule along the lateral border. I performed a partial anterior capsulectomy. Retractors were now placed around the femoral neck itself. A femoral neck cut was now made with a sagittal saw. It was completed with an osteotome at the lateral neck area. The femoral head was now removed without difficulty. The extremity was now rotated to 60 of external rotation. It was locked in position. Residual labrum was now debrided out. Serial reaming was performed of the acetabulum while J Luis TALBOT assisted holding an anterior retractor for exposure. Once we reached the appropriate size and a trial was position and fit nicely. The appropriate size was now chosen opened and made available. It was introduced into the acetabulum without difficulty. The C-arm/fluoroscopy was now brought into the operative field. We made sure we had a true AP pelvic view. We now under direct C- arm/fluoroscopy introduced into the acetabular component with appropriate version and inclination. I held the cup in appropriate position well J Luis TALBOT used a mallet to seat the acetabular component. I noted the component now to be well seated and stable. Acetabular cup introduce her was removed. The C-arm was pulled back. An appropriate liner was introduced and clicked into position. It was felt to be stable. At this point retractors were removed. The extremity was now placed into 140 external rotation with no traction. The leg was now dropped to the ground and adducted. Appropriate retractors were now positioned along the proximal femur. We also placed our femoral look into position. Additional capsular releasing was performed to gain access to the proximal femur. We now used a box osteotome. A canal finder was now utilized. Serial broaching was now performed with the assistance of J Luis TALBOT tapping the broaches down with a mallet while held the broach in appropriate rotation and position. This was done until we reached the appropriate size with good overall rotational stability. Appropriate calcar planing was performed. A trial head/neck was placed into position. The hip was now reduced. The C- arm/fluoroscopy was brought back into the operative field. I obtained an AP pelvis demonstrating adequate leg length alignment. The trial components appear to be adequately sized and positioned. The C-arm/fluoroscopy was pulled back. Retractors were repositioned and the hip was dislocated. The leg was again taken down to the ground and adducted. Appropriate retractors were repositioned as well as the femoral hook. All trial components were removed. The femoral implant was opened along with the femoral head. The femoral implant was introduced on the appropriate handle into our pre-broached area. I held the component position well J Luis TALBOT used a mallet to seat the femoral component. The femoral component was now noted to be well seated and stable.. The femoral head was introduced with good positioning and fixation noted. Retractors were now removed. The hip was now reduced. There appeared be good positioning of the hip confirmed on intraoperative fluoroscopy. Spot films were obtained to document this. A second gram of TXA was given. Bipolar cautery had been utilized intermittently through the procedure for hemostasis. The wound was irrigated copiously with pulse lavage mechanical irrigation. The fascia was repaired with Vicryl suture. The subcutaneous soft tissues were repaired in layers with Vicryl suture. The skin was approximated with pernio/Dermabond. Sterile dressings were applied. Patient was then awakened, transferred to a bed and taken to recovery in stable condition. J Luis TALBOT assisted with the complex procedure.
--- NOTE | 2025-04-21 09:13 | XR ---
EXAMINATION TYPE: XR Hip Limited LT, FL guidance operating room DATE OF EXAM: 04/21/2025 FLUOROSCOPY One intraoperative image demonstrating LEFT TOTAL ANT HIP REPLACEMENT IN THE OR, PAIN LEFT HIP. Total fluoroscopy time 12.1 seconds. Total dose: 0.39 Gycm2. [facility], Workstation: [email or web address], 04/21/2025 9:11 AM
[2025-04-21] MEDS: HYDROmorphone 0.5 MG/0.5 ML SYRINGE IVP PRN ×2 (11:06→15:24)
[2025-04-21] MEDS: SODIUM CHLORIDE 0.9% 1,000 ML IV SCH (12:48)
[2025-04-21] MEDS: HYDROcodone/APAP 10-325MG 1 EACH TAB PO PRN (13:06)
--- NOTE | 2025-04-21 13:45 | P.ANPRN ---
Procedure Note - Anesthesia - Nerve Block Performed Left Stevenson Single Time Out Performed: Yes Date of Procedure: 04/21/25 Procedure Start Time: 07:10 Procedure Stop Time: 07:17 Location of Patient: PreOp Indication: Acute Post-Operative Pain Sedation Type: Sedate with meaningful contact maintained Preparation: Sterile Prep Position: Supine Needle Types: Pajunk Needle Gauge: 21 Ultrasound used to visualize needle placement: Yes Ultrasound used to observe medication spread: Yes Blood Aspirated: No Pain Paresthesia on Injection Noted: No Resistance on Injection: Normal Image Stored and Saved: Yes Events: Uneventful and Well Tolerated (Ropivacaine 0.5% 20 cc plus dexamethasone 4 mg)
--- NOTE | 2025-04-21 16:06 | P.CONS ---
History of Present Illness - History of Present Illness Patient is left total hip arthroplasty for left hip osteoarthritis. Patient sti ll in some pain postoperatively. Patient is otherwise clinically doing well. Patient blood pressure is low normal. Patient does have history of hypertension does take LIZETTE inhibitor at home. Patient denies any dysuria nausea vomiting abdominal pain. Denied any cough. REVIEW OF SYSTEMS: All other systems are negative except those mentioned in the HPI PHYSICAL EXAMINATION: GENERAL: The patient is alert and oriented x3, not in any acute distress. Well developed, well nourished. HEENT: Pupils are round and equally reacting to light. EOMI. No scleral icterus. No conjunctival pallor. Normocephalic, atraumatic. No pharyngeal erythema. No thyromegaly. CARDIOVASCULAR: S1 and S2 present. No murmurs, rubs, or gallops. PULMONARY: Chest is clear to auscultation, no wheezing or crackles. ABDOMEN: Soft, nontender, nondistended, normoactive bowel sounds. No palpable organomegaly. MUSCULOSKELETAL: Deferred to orthopedic surgery EXTREMITIES: No cyanosis, clubbing, or pedal edema. NEUROLOGICAL: Gross neurological examination did not reveal any focal deficits. SKIN: No rashes. Assessment and plan -Left hip arthroplasty pain management as per primary service - Hypertension patient is presently hypotensive which is expected postoperatively in many patients will hold off antihypertensive medication will start an as-needed basis - Hyperlipidemia his statin will be restarted back DVT prophylaxis: As per primary service Past Medical History Past Medical History: Hyperlipidemia, Hypertension, Osteoarthritis (OA) Additional Past Medical History / Comment(s): uti. Macular degeneration History of Any Multi-Drug Resistant Organisms: None Reported Past Surgical History: Appendectomy Additional Past Surgical History / Comment(s): orion cataracts-lens implants, lt midlle finger sx d/t injury Past Anesthesia/Blood Transfusion Reactions: No Reported Reaction, Family History of Problems w/ Anesthesia Additional Past Anesthesia/Blood Transfusion Reaction / Comm: never had any blo od transfusions to date. "My father went in for hip surgery, years ago, and never came out of the anesthesia." Smoking Status: Former smoker - Past Family History Mother Family Medical History: No Reported History Additional Family Medical History / Comment(s): from old age in her 90's Father Family Medical History: Myocardial Infarction ([place]) Medications and Allergies Home Medications Medication Instructions Recorded Confirmed Type Aspirin EC [Ecotrin Low Dose] 81 mg PO DAILY 02/02/18 04/21/25 History Eye Vitamin(Unknown) 1 tab PO DAILY 02/02/18 04/21/25 History Lovastatin [Mevacor] 80 mg PO HS 02/02/18 04/21/25 History lisinopriL [Zestril] 10 mg PO DAILY 02/02/18 04/21/25 History Advil (Unknown Dose) 1 dose PO DIRECTED PRN 04/17/25 04/21/25 History traMADol HCL 50 mg PO Q6H PRN 04/17/25 04/21/25 History Acetaminophen Tab [Tylenol] 500 mg PO DAILY PRN 04/21/25 04/21/25 History Allergies Allergy/AdvReac Type Severity Reaction Status Date / Time No Known Allergies Allergy Verified 04/21/25 06:09 Physical Exam Vitals: Vital Signs Temp Pulse Pulse Resp BP BP Pulse Ox 04/21/25 12:00 82 20 132/79 91 L 04/21/25 11:30 65 18 124/77 94 L 04/21/25 11:15 67 16 132/68 96 04/21/25 11:00 70 17 120/62 95 04/21/25 10:45 64 16 121/69 95 04/21/25 10:35 63 17 121/65 94 L 04/21/25 10:20 61 15 118/58 96 04/21/25 10:06 71 19 103/55 92 L 04/21/25 09:51 57 L 14 107/52 94 L 04/21/25 09:36 56 L 18 107/55 97 04/21/25 09:21 97.1 F L 59 L 16 113/54 97 04/21/25 07:15 65 19 104/68 97 04/21/25 06:23 97.8 F 65 18 137/70 92 L Intake and Output 04/21/25 04/21/25 04/21/25 06:59 14:59 22:59 Intake Total 100 850 Output Total 45 Balance 100 805 Intake: IV 100 850 Output: Estimated Blood Loss 45 Other: Weight 56.9 kg
[2025-04-21] MEDS: SENNOSIDES 8.6 MG TAB PO PRN (18:53)
[2025-04-21] MEDS: ATORVASTATIN 20 MG TAB PO SCH (20:32)
[2025-04-21] MEDS: ASPIRIN 81 MG PO SCH (20:33)
[2025-04-22 07:52] VITALS: BP 116/62; PULSE 72; RESP 18; TEMP 98.1
[2025-04-22 08:24] LABS: Basophils # (A) 0.01 X 10*3/uL (0.00-0.10); Basophils % (A) 0.1 %; Eosinophils # (A) 0.01 X 10*3/uL (0.04-0.35); Eosinophils % (A) 0.1 %; HCT 35.6 % (37.2-46.3); HGB 10.9 g/dL (12.0-15.0); Immature Grans, Automated 0.40 %; Lymphocytes # (A) 1.03 X 10*3/uL (0.90-5.00); Lymphocytes % (A) 12.3 %; MCH 27.7 pg (27.0-32.0); MCHC 30.6 g/dL (32.0-37.0); MCV 90.4 FL (80.0-97.0); Monocytes # (A) 1.02 X 10*3/uL (0.20-1.00); Monocytes % (A) 12.2 %; NRBC Per 100 WBC 0 X 10*3/uL (0.00-0.01); Neutrophils # (A) 6.27 X 10*3/uL (1.80-7.70); Neutrophils % (A) 74.9 %; Platelet Count 235 X 10*3/uL (140-440); RBC 3.94 X 10*6/uL (4.10-5.20); RDW 13.2 % (11.5-14.5); WBC 8.37 X 10*3/uL (4.50-10.00)
[2025-04-22] MEDS: FAMOTIDINE 20 MG TAB PO SCH (08:54)
[2025-04-22] MEDS ORDERED: ASPIRIN 81 MG PO SCH (09:00)
[2025-04-22] MEDS: MULTIVITAMINS, THERA 1 EACH TAB PO SCH (11:19)
--- NOTE | 2025-04-22 12:52 | P.PN ---
Subjective Progress Note Date: 04/22/25 Principal diagnosis: Status post direct anterior left total hip arthroplasty Patient is doing very well at this time, pain is well-controlled. She did well with physical therapy. She denies headaches, lightheadedness, chest pain or shortness of breath Objective - Vital Signs Vital signs: Vital Signs Temp 98.1 F 04/22/25 07:52 Pulse 72 04/22/25 07:52 Resp 18 04/22/25 07:52 BP 116/62 04/22/25 07:52 Pulse Ox 91 L 04/22/25 07:52 FiO2 Intake & Output 04/21/25 04/22/25 04/22/25 18:59 06:59 18:59 Intake Total 850 Output Total 45 Balance 805 Weight 56.9 kg Intake: IV 850 Output: Estimated Blood Loss 45 Other: Voiding Method Toilet Toilet # Voids 2 4 - Exam Left lower extremity: Incision is clean, dry, and intact. The foam dressing is in good condition. There is minimal soft tissue swelling and ecchymosis surrounding the medial and lateral aspects of the incision. Calf is soft, no tenderness with palpation. Plantar flexion, dorsiflexion, EHL, FHL are intact. Sensory exam to light touch throughout the extremity is intact, dorsal pedis pulses 2+. - Labs CBC & Chem 7: 04/22/25 02:49 Labs: Abnormal Lab Results - Last 24 Hours (Table) 04/22/25 Range/Units 02:49 RBC 3.94 L (4.10-5.20) X 10*6/uL Hgb 10.9 L (12.0-15.0) g/dL Hct 35.6 L (37.2-46.3) % MCHC 30.6 L (32.0-37.0) g/dL Monocytes # 1.02 H (0.20-1.00) X 10*3/uL Eosinophils # 0.01 L (0.04-0.35) X 10*3/uL Assessment and Plan Assessment: Postoperative day #1 status post direct anterior left total hip arthroplasty Plan: Pain control, discharge home on oral medication along with stool softeners DVT prophylaxis, aspirin 81 mg twice a day for 30 days Wound care instructions were discussed, this to include bandaging, showering and icing instructions Weight-bear as tolerated with walker Home PT/nursing after discharge Medical recommendations appreciated Discharge planning: Patient stable for discharge home today Time with Patient: Less than 30
--- NOTE | 2025-04-22 12:55 | P.DS ---
Providers Date of admission: 04/21/2025 Expected date of discharge: 04/22/25 Attending physician: Nav Lynn Consults: 04/21/25 09:08 Consult Physician Routine Consulting Provider: Ruma Crystal Consult Reason/Comments: Medical management Do you want consulting provider notified?: Yes Primary care physician: [facility] Course: Date of admission: 04/21/2025 Date of discharge: 04/22/2025 Admission diagnosis: Status post direct anterior left total hip arthroplasty Discharge diagnosis: Same Attending physician: Dr. Lynn Surgical procedures: Direct anterior left total hip arthroplasty Brief history: Patient is a 84-year-old female with a history of progressive primary left hip osteoarthritis. At this point patient has failed conservative treatment measures and has opted to proceed with a elective direct anterior left total hip arthroplasty. Hospital course: Details of patient's surgery can be found in operative report. Patient tolerated the procedure well and was subsequently transported to orthopedic floor. Patient's orthopeidc and medical care was provided daily. Patient had daily laboratory tests performed for evaluation of overall blood counts. Patient had daily physical therapy to include strengthening range of motion as well as education with walker ambulation. Patient was treated with aspirin for their postoperative DVT prophylaxis during their inpatient stay. Patient was noted to have a relatively uneventful postoperative course. Patient reported satisfactory pain control with oral pain medications by postoperative d ay 0. Patient showed satisfactory progress with physical therapy. Patient moved steadily through the program and had no difficulty meeting the goals by postoperative day 1. Given patient's otherwise satisfactory course and having met physical therapy goals, plan is to discharge patient home on postoperative day 1. Discharge condition/disposition: Patient will be discharged home in stable condi tion. Discharge medications: Instructions are given on resumption of patient's normal daily medications per primary care recommendation, in addition patient will be prescribed Stryker 7.5 mg / 325 mg, senna S, aspirin 81 mg. Discharge instructions: 1. Wound care and infection precautions, keep incision dry and covered while showering, no lotions, creams, moisturizers. No soaking, tubs, pools, hottubs. Do not scrub over the incision. 2. Weight-bear as tolerated with walker / cane until follow-up. 3. Ice and elevate when necessary. Do not exceed 20 minutes per hour with ice pack. 4. Utilize compression sleeve until seen at first follow up appointment. 5. Visiting nursing care. 6. Home physical therapy. 7. Pain meds and anticoagulants per prescription. 8. Pain medication has potential to cause constipation. Increase oral fluid and fiber intake. Contact primary care provider if you have not had a bowel movement within 48 hours after discharge 9. No anti-inflammatory medication until discussed at first post operative visit, this including Motrin, Aleve, Mobic, Diclofenac. 10. Follow up in office at 2 weeks postop with J Luis Hussein PA-C/Margarito Chiang 11. Follow up with your primary care doctor 7-10 days after discharge. 12. Contact [facility] with any questions, . Procedures: Direct anterior left total hip arthroplasty Patient Condition at Discharge: Good Plan - Discharge Summary Discharge Rx Participant: No New Discharge Prescriptions: New Aspirin [Adult Low Dose Aspirin EC] 81 mg PO BID #60 tab HYDROcodone/APAP 7.5-325MG [Stryker 7.5] 1 each PO Q6HR PRN #28 tab PRN Reason: Pain Sennosides/Docusate Sodium [Senna-S 8.6-50 mg Tablet] 2 each PO DAILY PRN #30 tablet PRN Reason: Constipation No Action Aspirin EC [Ecotrin Low Dose] 81 mg PO DAILY Lovastatin [Mevacor] 80 mg PO HS lisinopriL [Zestril] 10 mg PO DAILY Eye Vitamin(Unknown) 1 tab PO DAILY traMADol HCL 50 mg PO Q6H PRN PRN Reason: Pain Advil (Unknown Dose) 1 dose PO DIRECTED PRN PRN Reason: Pain Acetaminophen Tab [Tylenol] 500 mg PO DAILY PRN PRN Reason: Pain Discharge Medication List Aspirin EC [Ecotrin Low Dose] 81 mg PO DAILY 02/02/18 [History] Eye Vitamin(Unknown) 1 tab PO DAILY 02/02/18 [History] Lovastatin [Mevacor] 80 mg PO HS 02/02/18 [History] lisinopriL [Zestril] 10 mg PO DAILY 02/02/18 [History] Advil (Unknown Dose) 1 dose PO DIRECTED PRN 04/17/25 [History] traMADol HCL 50 mg PO Q6H PRN 04/17/25 [History] Acetaminophen Tab [Tylenol] 500 mg PO DAILY PRN 07/14/25 [History] Aspirin [Adult Low Dose Aspirin EC] 81 mg PO BID #60 tab 04/22/25 [Rx] HYDROcodone/APAP 7.5-325MG [Stryker 7.5] 1 each PO Q6HR PRN #28 tab 04/22/25 [Rx] Sennosides/Docusate Sodium [Senna-S 8.6-50 mg Tablet] 2 each PO DAILY PRN #30 tablet 04/22/25 [Rx] Follow up Appointment(s)/Referral(s): Juan Diego Hussein PAC [PHYSICIAN DIRECTOR OF MARKETING COMMUNICATIONS] - 05/07/25 1:30 pm [facility] Visiting Nurse, [NON-STAFF] - 1 Week (Agency will call 24-48 hours after d/c to make an appointment.) Activity/Diet/Wound Care/Special Instructions: Orthopedic Discharge Instructions: 1. Wound care and infection precautions, keep incision dry and covered while showering, no lotions, creams, moisturizers. No soaking, pools, hot tubs. Do not scrub over incision. 2. Weight-bear as tolerated with walker / cane until follow-up. 3. Ice and elevate when necessary. Do not exceed 20 minutes per hour with ice pack. 4. Utilize compression sleeve until seen at first follow up appointment. 5. Pain meds and anticoagulants per prescription. 6. Pain medication has potential to cause constipation. Increase oral fluid and fiber intake. Contact primary care provider if you have not had a bowel movement within 48 hours after discharge. 7. No anti-inflammatory medication until discussed at first post operative visit, this including Motrin, Aleve, Mobic, Diclofenac. 8. Follow up in office at 2 weeks postop with J Luis Hussein PA-C/Margarito Hill PA-C 9. Follow up with your primary care doctor 7-10 days after discharge. 10. Contact [facility] with any questions, . Wound care instructions: 1. Okay to remove surgical dressing as of 04/30/2025 2. Okay to shower directly over the incision after removal of dressing Discharge Disposition: HOME WITH HOME HEALTH SERVICES
== END 2025-04-22 14:47 | disposition home health service (06) ==
LOC: OR 05:46 → 4SSUR 09:01 → OR 04-22 14:47
PROVIDERS: ATTEND Orthopaedic Surgery
DX: M16.12 Unilateral primary osteoarthritis, left hip (principal); I10 Essential (primary) hypertension; E78.5 Hyperlipidemia, unspecified; Z87.440 Personal history of urinary (tract) infections; Z87.891 Personal history of nicotine dependence; Z82.49 Family history of ischemic heart disease and other diseases of the circulatory system; Z90.49 Acquired absence of other specified parts of digestive tract; Z96.642 Presence of left artificial hip joint; Z79.82 Long term (current) use of aspirin; Z79.899 Other long term (current) drug therapy
CPT/HCPCS: 64473; 73501; 27130; C1776; J2250; J0690 ×2; J2405; J1171; 85025